=== PATIENT | male | born 1950 | race Caucasian/White ===

== ENCOUNTER 2024-02-01 05:03 | Inpatient (IN) | payer MEDICARE, BC, SELFPAY ==
[2024-01-24 08:58] LABS: Urine Albumin Negative (Neg - Trace); Urine Bilirubin Negative (Negative); Urine Character Clear (Clear); Urine Color Yellow; Urine Glucose Negative (Negative); Urine Ketone Negative (Negative); Urine Leukocyte Negative (Negative); Urine Nitrite Negative (Negative); Urine Occult Blood Negative (Negative); Urine Urobilinogen Negative (Neg - 1+)
[2024-01-24 09:03] LABS: % Basophils 0.8 % (0-2); % Eosinophils 2.3 % (0-6); % Immature Granulocytes 0.2 % (0-0.5); % Lymphocytes 13.2 % (20.5-51.1); % Monocytes 8.9 % (1.7-9.3); % Neutrophils 74.6 % (42.2-75.2); Absolute Basophils 0.1 10^3/uL (0-0.2); Absolute Eosinophils 0.1 10^3/uL (0-0.7); Absolute Lymphocytes 0.8 10^3/uL (1.2-3.4); Absolute Monocytes 0.6 10^3/uL (0.1-0.6); Absolute Neutrophils 4.6 10^3/uL (1.4-6.5); Hematocrit 44.1 % (39.0-52.0); Mean Corpuscular Hgb 30.4 pg (27.0-31.0); Mean Corpuscular Volume 89.3 fL (80.0-94.0); Mean Platelet Volume 9.9 fL (7.4-10.4); Nucleated Red Blood Cells % 0 % (-); Platelet Count 211 10^3/uL (130-400); Red Blood Cell Count 4.94 10^6/uL (4.70-6.10); White Blood Cell Count 6.2 10^3/uL (4.8-10.8)
[2024-01-24 09:27] LABS: Glycohemoglobin (HgbA1c) 5.8 % (4.0-5.6); INR 1.18; PT 14.9 Sec (11.4-14.6)
[2024-01-24 09:28] LABS: APTT 35.4 Sec (23.4-35.0)
[2024-01-24 09:36] LABS: ALT (SGPT) 32 U/L (0-50); AST (SGOT) 35 U/L (17-59); Albumin 3.7 g/dl (3.5-5.0); Alkaline Phosphatase 104 U/L (38-126); Blood Urea Nitrogen 21 mg/dl (9-20); Carbon Dioxide 30 mmol/L (22-30); Chloride 106 mmol/L (98-107); Direct Bilirubin 0.1 mg/dl (0.0-0.4); Glucose 107 mg/dl (70-99); Potassium 4.8 mmol/L (3.5-5.1); Sodium 138 mmol/L (135-145); Total Bilirubin 1.1 mg/dl (0.2-1.3); Total Protein 6.2 g/dl (6.3-8.2); eGFR > 60.00
[2024-01-24 11:03] VITALS: BMI 32.8
--- NOTE | 2024-01-24 14:29 | CM ---
spoke to pt in PAT's, we discussed pre-op CABG/AVR teaching including sternal and driving restrictions. he is prev ndep, lives with his in a 2 story home with 1 step to enter. he has a cane and a walker at home to use if needed. he has the
cardiac educ book, soap and instructions. he is agreeable to a f/u appt with the ct transitional care nurse after dc. plan is for CABG/AVR 01/31. cm to follow.
[2024-02-01] VITALS (12 sets, daily range): BP systolic 96–150; BP diastolic 58–77; BMI 31.9
[2024-02-01] MEDS: MAGNESIUM OXIDE 500 MG PO (06:11)
[2024-02-01] MEDS: BACTROBAN 2% OINTMENT 1 APPLIC NASAL ×2 (06:11→20:14)
--- NOTE | 2024-02-01 06:12 | W.CVOR.SURPR ---
[facility] Surgeon Immed Pre Op
-
I have examined this patient prior to performance of the scheduled procedure.
The patient's condition is unchanged from the time of the dictated/written History and
Physical and the patient is able to undergo the scheduled procedure.
AVR (biological) + CABG
Thoughtful discussion this morning, Mr. Brunson brought up mechanical valves. Ultimately, shared decision making was
to pursue a biological valve at his age.
--- NOTE | 2024-02-01 06:15 | PTCARENOTE ---
Patient arrived at room 2268 with security attendant without difficulty. Patient A+A+Ox3. No neurological deficits noted. Steady gait. No c/o pain or discomfort. Patient confirmed NPO after midnight. Patient confirmed 4% chlorhexidine shower
last night and this morning. Patient clipped and prepped per protocol. G wipes. Admission questions and medication reconciliation completed. Patient took his own Metoprolol (Toprol XL) 25 mg PO this morning at home, and Protonix 40 mg PO.
I.S. 2000 ml. Heart pillow explained - Repeat demonstration by patient. Dr. Tapia arrived and spoke with patient. call center associate to [facility].
[2024-02-01 07:44] LABS: ACT+ - POC 90 Seconds (82-134)
[2024-02-01 07:45] LABS: B.E. - POC -2.1 mmol/L; Glucose - POC 110 mg/dl (65-99); HCO3 - POC 22 mmol/L (21-29); Hematocrit - POC 37 % PCV (42-52); Hemodilution- POC Yes; Hemoglobin Calculated - POC 12.7; Ionized Calcium - POC 1.17 mmol/L (1.12-1.27); O2 Saturation %Calculated-POC 99.3 5 (92-96); PCO2 - POC 34 mmHg (35-45); PO2 - POC 142 mmHg (80-100); Potassium - POC 3.7 mmol/L (3.6-5.0); Sodium - POC 141 mmol/L (135-145); pH - POC 7.42 (7.35-7.45)
--- NOTE | 2024-02-01 07:53 | CM ---
Reviewed chart. Mr. Brunson is in the operating room today/ Prior to admission he resides with his spouse in a two story home with one step to enter. Prior to admission he was independent with ambulation and adls. He has a walker and single point
cane at home. He has a prescription plan and uses [facility]. Medical work-up in progress. The discharge plan is undetermined at this time.
[2024-02-01 07:57] LABS: Urine Albumin Negative (Neg - Trace); Urine Bilirubin Negative (Negative); Urine Character Clear (Clear); Urine Color Yellow; Urine Glucose Negative (Negative); Urine Ketone Negative (Negative); Urine Leukocyte Negative (Negative); Urine Nitrite Negative (Negative); Urine Occult Blood Negative (Negative); Urine Specific Gravity 1.015 (<1.030); Urine Urobilinogen Negative (Neg - 1+)
[2024-02-01 09:22] LABS: ACT+ - POC 787 Seconds (82-134)
[2024-02-01 09:40] LABS: B.E. - POC -0.3 mmol/L; Glucose - POC 160 mg/dl (65-99); HCO3 - POC 24 mmol/L (21-29); Hematocrit - POC 33 % PCV (42-52); Hemodilution- POC Yes; Hemoglobin Calculated - POC 11.4; Ionized Calcium - POC 1.06 mmol/L (1.12-1.27); O2 Saturation %Calculated-POC 99.8 5 (92-96); PCO2 - POC 39 mmHg (35-45); PO2 - POC 218 mmHg (80-100); Potassium - POC 5.1 mmol/L (3.6-5.0); Sodium - POC 138 mmol/L (135-145); pH - POC 7.41 (7.35-7.45)
[2024-02-01 09:47] LABS: ACT+ - POC 765 Seconds (82-134)
[2024-02-01 10:02] LABS: B.E. - POC -1.1 mmol/L; Glucose - POC 168 mg/dl (65-99); HCO3 - POC 23 mmol/L (21-29); Hematocrit - POC 34 % PCV (42-52); Hemodilution- POC Yes; Hemoglobin Calculated - POC 11.6; Ionized Calcium - POC 1.08 mmol/L (1.12-1.27); O2 Saturation %Calculated-POC 99.6 5 (92-96); PCO2 - POC 34 mmHg (35-45); PO2 - POC 179 mmHg (80-100); Potassium - POC 5.1 mmol/L (3.6-5.0); Sodium - POC 140 mmol/L (135-145); pH - POC 7.44 (7.35-7.45)
[2024-02-01 10:41] LABS: ACT+ - POC 656 Seconds (82-134)
[2024-02-01 10:42] LABS: B.E. - POC -1.7 mmol/L; Glucose - POC 153 mg/dl (65-99); HCO3 - POC 23 mmol/L (21-29); Hematocrit - POC 39 % PCV (42-52); Hemodilution- POC Yes; Hemoglobin Calculated - POC 13.4; Ionized Calcium - POC 1.17 mmol/L (1.12-1.27); PCO2 - POC 39 mmHg (35-45); PO2 - POC 385 mmHg (80-100); Potassium - POC 4.3 mmol/L (3.6-5.0); Sodium - POC 141 mmol/L (135-145); pH - POC 7.39 (7.35-7.45)
[2024-02-01 11:00] LABS: B.E. - POC -1.3 mmol/L; Glucose - POC 148 mg/dl (65-99); HCO3 - POC 23 mmol/L (21-29); Hematocrit - POC 40 % PCV (42-52); Hemodilution- POC Yes; Hemoglobin Calculated - POC 13.7; Ionized Calcium - POC 1.15 mmol/L (1.12-1.27); O2 Saturation %Calculated-POC 99.9 5 (92-96); PCO2 - POC 37 mmHg (35-45); PO2 - POC 348 mmHg (80-100); Potassium - POC 4.2 mmol/L (3.6-5.0); Sodium - POC 143 mmol/L (135-145)
[2024-02-01 11:02] LABS: ACT+ - POC 565 Seconds (82-134)
[2024-02-01 11:17] LABS: ACT+ - POC 493 Seconds (82-134)
[2024-02-01 11:28] LABS: B.E. - POC -2.5 mmol/L; Glucose - POC 130 mg/dl (65-99); HCO3 - POC 23 mmol/L (21-29); Hematocrit - POC 35 % PCV (42-52); Hemodilution- POC Yes; Hemoglobin Calculated - POC 12.1; Ionized Calcium - POC 1.31 mmol/L (1.12-1.27); PCO2 - POC 39 mmHg (35-45); PO2 - POC 378 mmHg (80-100); Potassium - POC 4.4 mmol/L (3.6-5.0); Sodium - POC 142 mmol/L (135-145); pH - POC 7.37 (7.35-7.45)
[2024-02-01 11:54] LABS: ACT+ - POC 109 Seconds (82-134)
[2024-02-01 11:56] LABS: B.E. - POC -4.4 mmol/L; Glucose - POC 125 mg/dl (65-99); HCO3 - POC 21 mmol/L (21-29); Hematocrit - POC 33 % PCV (42-52); Hemodilution- POC Yes; Hemoglobin Calculated - POC 11.2; Ionized Calcium - POC 1.36 mmol/L (1.12-1.27); O2 Saturation %Calculated-POC 97.9 5 (92-96); PCO2 - POC 37 mmHg (35-45); PO2 - POC 106 mmHg (80-100); Potassium - POC 3.9 mmol/L (3.6-5.0); Sodium - POC 143 mmol/L (135-145); pH - POC 7.36 (7.35-7.45)
[2024-02-01 11:57] LABS: ACT+ - POC > 1003 Seconds (82-134)
[2024-02-01 12:53] LABS: Glucose - Point of Care 153 mg/dl (70-99)
[2024-02-01] MEDS: ALBUMIN 5% 250 IV ×3 (12:55→16:11)
[2024-02-01 12:57] LABS: B.E. -3.2 mmol/L; HCO3 22.7 mmol/L (21-28); Hematocrit 36.2 % (39.0-52.0); Hemoglobin 12.5 g/dL (13.0-18.0); Ionized Calcium 1.25 mMOL/L (1.15-1.33); O2 Saturation % 99.3 % (94-98); PCO2 43 mmHg (35-48); PO2 220 mmHg (83-108); Platelet Count 159 10^3/uL (130-400); Potassium 4.2 mMOL/L (3.5-5.1); Sodium 137 mMOL/L (136-145); pH 7.33 (7.35-7.45)
--- NOTE | 2024-02-01 13:00 | W.PN.CT.SURG ---
CT Surgery Operative Note
-
CARDIAC SURGERY OPERATIVE REPORT
Preoperative Diagnosis: Aortic valve stenosis as well as severe aortic valve insufficiency with multivessel coronary artery disease involving the proximal LAD
Postoperative Diagnosis: Same
Procedure(s) Performed:
1. Standard sternotomy with aortic and right atrial cannulation
2. Coronary artery bypass grafting x 2 (In situ MCLEAN to LAD, Ao to RSVG to RPDA)
3. Surgical aortic valve replacement [25 mm bioprosthetic valve]
4. Placement of temporary atrial and ventricular pacing wires
5. Second cross-clamp with small aortotomy to remove debris/calcium attached to the none right coronary commissure just above the bioprosthetic valve against the aortic wall
6. Trans-esophageal echocardiography
Date of Surgery: 02/01/2024
Comorbidities:
1. Severe aortic valve insufficiency
2. Multivessel coronary artery disease
3. Hypertension
4. Lipidemia
5. Mild mitral and tricuspid valve regurgitation
6. Multiple orthopedic issues and surgeries
Attending Surgeon: Jerrod Tapia MD, MS
Assistants: Alfredo Cedillo PA-C (present and necessary to tv production assistant, endoscopic vein harvest, retraction, suction, exposure, suture management, and wound closure under my direction)
Anesthesiology: Mick Gong MD and Rolando Fortune CRNA
Scrub and Circulating RNs: Radha Figueroa RN, Aditi Portillo RN
Television Tube Inspector: Anna Rainey CCP
Anesthesia: GETA
EBL: per perfusion records
Products: None
CPB Time: 128 minutes total
Aortic Cross Clamp Time: 93 minutes total
Indication(s) for Procedures: This is a 73-year-old male with a history of moderate aortic valve stenosis and severe aortic valve insufficiency. He was developing exertional chest tightness and discomfort though consistent with angina. He
underwent left heart catheter demonstrated multivessel coronary artery disease involving the proximal LAD as well as the proximal RPDA. Due to his symptoms and severe aortic valve insufficiency, he met class I indication for intervention.
Aortic Valve Description: Moderately calcified, prolapse of the noncoronary cusps with heavy calcium running down the noncoronary cusp into the aorta mitral curtain. The left and right coronary ostia were in the [place] positions. The right
coronary ostium was heavily calcified with a large shelf of calcium overlying the ostium.
Conduit(s) Quality:
MCLEAN -skeletonized/excellent flow
RSVG -uniform in size/excellent flow with test dose of antegrade into the RPDA graft
Target(s) Quality:
RCA/PDA -approximately 50 to 60 cc a minute of flow with test dose of antegrade
LAD -excellent visual flow in the LAD territory with pinking up of the myocardium
Findings: LVEF on intraoperative ADALGISA was 60% and 60% post procedure. There were no new regional wall motion abnormalities. The aortic valve was resected after performing the CABG procedure. There is heavy dense calcification that extended from
the noncoronary cusp down the aorta mitral curtain which was debrided carefully to prevent perforation into the left atrium. There was also scattered islands of calcium along the sinuses and at the sinutubular junction. The prostatic aortic valve
was secured to place with a total of 17 nonpledgeted 2 Ethibond sutures secured with core knots. There was no prosthetic PVL or AI. Mean gradient across the prosthesis was 8 mmHg. The MCLEAN was harvested in a skeletonized fashion. Following bypass
grafting, test dose cardioplegia was given down each distal and confirmed patency and hemostasis. Each distal was probed both proximally and distally to confirm disease and patency, respectively. There were no new regional wall motion
abnormalities. On transesophageal echocardiogram post cardiopulmonary bypass, there was a small piece of debris overlying the right none, sure on the aortic side that was fairly mobile. Given the appearance and risk of stroke, I elected to recross
clamp and rearrest the heart in order to debride that area further to prevent embolization and mischaracterization as endocarditis. Following this, there is no residual debris or mobile tissue on follow-up transesophageal echocardiogram. Did not
require any blood products. His cardiac function appeared to be normal after the second clamp run. His cardiac index was 2 and above without significant inotropic support.
Specimen(s): Aortic valve leaflets.
Prosthesis: 25mm Medtronic Avalus Bioprosthetic Valve, serial number: [id number].
Description of Procedure: The patient was taken to the operating room. Their identity and procedure to be performed were verified and they were positioned supine on the operating table. Induction via general anesthesia with endotracheal intubation
was performed and central venous access and arterial monitoring were inserted. A preoperative transesophageal echocardiogram was performed. The patient was then prepped and draped from chin to feet in a sterile fashion. A preoperative time-out was
performed with all members of the team present. A midline chest incision was performed along with median sternotomy. Simultaneous endoscopic access of the right lower extremity for saphenous vein harvest was obtained along with administration of an
initial 5,000 units of IV heparin. A RulTract sternal retractor was positioned to exposure the left internal mammary bed. The mammary was harvested in a skeletonized fashion and found to have good flow. A medium size clip was applied to the distal
end of the mammary after dividing it. It was wrapped in a papaverine soaked RayTec and replaced back into the left hemithorax. The RulTract was exchanged for a median sternal retractor. The innominate vein was isolated. Full heparinization was
given. I created a pericardial well. The aortic cannulation site was chosen where it was soft, pliable, and free of calcium. Cannulation was performed with an arterial cannula in the ascending aorta and a triple-stage venous cannula through the
right atrial appendage. The arterial cannula line had an appropriate bounce and correlating pressures with test dosing. next a retrograde coronary sinus catheter was placed under manual and echocardiographic guidance. The ACT was confirmed to be
over 400 and retrograde autologous priming was performed before commencing cardiopulmonary bypass. The pulmonary artery was away from the aorta to facilitate a clamp site. Left ventricular vent was placed at the right superior pulmonary
vein. The aortic cross-clamp was placed after decreasing the flow on the bypass and mean arterial pressure. A total of 1.2L initial dose of antegrade/retrograde Del-Nido cardioplegia solution was given and planned for re-dosing every 75 minutes as
necessary. There was rapid electro-mechanical arrest of the heart at 600 cc of cardioplegia. The aorta was opened at this point with good visualization of retrograde cardioplegia emanating from the left main. Cold slush was placed into a sponge and
topically on the RV while we systemically cooled to 34 degrees centigrade.
I positioned the heart to expose the distal right coronary at the posterior descending artery. A kotzebue blade was used to expose the coronary and perform the arteriotomy. Coronary Eagle scissors were used to enlarge the incision. The saphenous vein
was trimmed and beveled to an appropriate size. The distal anastomosis was performed using 7-0 prolene in an end-to-side fashion. Antegrade cardioplegia was administered into the graft. Appropriate hemostasis and flow were confirmed. The graft was
measured for length to the aorta and cut. A suitable target on the mid left anterior descending was identified. We dissected and prepared the distal target in a similar fashion. We retrieved the MCLEAN from the chest and created a pericardial opening
while being cognizant of the phrenic nerve to facilitate the course of the mammary. The distal end of the mammary was prepped and beveled to size. We verified orientation and length of the JEREMIAH and found brisk flow. An end-to-side anastomosis was
created with a 7-0 prolene. We temporarily released the bulldog clamp on the mammary to inspect flow. Perfusion to the LAD territory was visualized and hemostasis was confirmed. The bull clamp was replaced on the mammary.
Carbon dioxide was used to flood the field. I turned my attention to the aortic valve. The location of both left and right coronary vessels were visualized in the root. The aortic valve was inspected and found to be heavily calcified with prolapse
of the noncoronary cusp as well as extensive calcium extending down to the aorta mitral curtain. The leaflets were excised and sent for pathological assessment. The aorta mitral curtain was debrided. The annulus was debrided of any calcium. The
root and left ventricular outflow tract were thoroughly irrigated to remove any debris. A total of 17, nonpledgeted 2-0 ethibond annular sutures were placed [id number] circumferentially. These were brought through the sewing cuff of the
prosthetic valve which was then parachuted into place. The left and right coronary ostia were visualized and were unobstructed by the valve. A Cor-Knot device was used to secure the annular sutures. The valve was inspected and was well seated. I
did have to debride some calcium off of the ostium of the right coronary artery. The aortotomy was approximated with 4-0 prolene in two layers. The heart was filled to make final assessment of graft length and orientation. I created 1 aortotomy
using a #11 blade then a 4.0mm aortic punch above the aortic suture line. The proximal anastomoses were created in an end-to-side fashion using 6-0 prolene. At the same time, we started to re-warm to 36.5 degrees centigrade. The bulldog clamp was
removed from the mammary and temproary bipolar ventricular pacing wires were placed on the base of the right ventricle with additional atrial pacing wires at the SVC/right atrial junction. The patient was placed in a Trendelenburg position and flows
on bypass were lowered. The aortic cross clamp was removed and flows were slowly brought back up. The aortotomy appeared hemostatic. A 30-gauge needle was used to de-air the vein grafts. All bypass grafts were inspected and were free from kinking or
twisting. The distal and proximal anastomoses appeared hemostatic. De-airing maneuvers were performed. Transesophageal echocardiography revealed no paravalvular leak and appropriate prosthetic function. The venous cannula had removed at this point.
However, there was some mobile debris overlying the valve at the right none commissure on the aortic side. Protamine was stopped, heparin was reinstituted. The venous cannula was reinserted to the same right atriotomy. An additional root vent
was placed in the ascending aorta. At this point I elected to recross clamp the heart and to redosed with a low-dose of cardioplegia and clamped the mammary. A small aortotomy was created that was approximately 2 to 3 cm in length above the
coronary anastomosis and aortic suture line. The valve was then inspected and a small amount of debris was found at the specified location just above the valve against the aortic wall. This was mainly taken off with a DeBakey forcep. The small
aortotomy was then closed in 2 layers using 4-0 Prolene and reinforced with pledgets. The head was then lowered once more the root vent was turned on. De-airing maneuvers were performed. And flows in the pump were lowered to remove the
cross-clamp once again. Flows were then brought back up. Transesophageal echocardiographic evaluation revealed that that area with the debris is no longer present. The patient did require cardioversion x 2 for fibrillation which was successful
after emptying the left ventricle. Once de-airing was satisfactory, the left ventricular and root vents were removed. After verifying acceptable parameters, we initiated weaning from cardiopulmonary bypass. Once we were off cardiopulmonary bypass,
the venous cannulas was clamped and removed. A test dose of protamine was administered and the patient was monitored for any adverse reaction before resuming protamine. Once half of the protamine dose was delivered, pump suckers were turned off and
the systolic blood pressure was lowered for aortic decannulation. The aortic cannula was removed and pursestrings were tied down. All cannulation sites were oversewn with a 4-0 prolene. The aortic line, proximal, and distal coronary anastomoses were
hemostatic. The mammary bed was inspected and hemostasis was confirmed. Once the mediastinum was hemostatic, a 19Fr Prudencio drain was placed in the left/right pleural cavity and two 24Fr Prudencio drains were placed within the pericardium. The sternum was
approximated with 4 #7 single and 3 #8 double stainless steel wires. Fascia was approximated with #1 vicryl suture. The subcutaneous, dermis and epidermis were closed in layers in a running fashion. The skin wound was cleansed and dressed.
All instrument, sponge, and needle counts were confirmed to be correct x 2 at the end of the operation. The patient was transferred to the cardiac intensive care unit in critical but stable condition.
I, Dr. Jerrod Tapia, was present, scrubbed for, and performed all critical elements of this procedure.
Jerrod Tapia MD, MS
Cardiothoracic Surgeon
[facility]
This operative dictation was created using the Nixon dictation system. Please excuse any grammatical, typographical, or 'sound alike' errors
--- NOTE | 2024-02-01 13:05 | PTCARENOTE ---
pt received from [facility], sedated on Precedex gtt, RASS -5. core temp 98.0F. SR on the monitor, HR 70s. A&V wires, AAI 50/8. SBP labile, Levophed gtt running as ordered. Albumin given x1. PAP 20s-30s/10s, CVP ~5, CI >2. Dobutamine gtt @3mcg/kg/min.
palpable pulses, no edema. pt mechanically ventilated, ETT #8.0, 23cm@lip. SIMV 12, TV 550, PEEP 10, PS 8, FIO2 100%. POX 99%. lungs clear anteriorly. CT x4, no air leak or crepitus noted, BOX SPRING FRAME BUILDER and Dr. Tapia aware of CT output. pt abdomen s/n,
hypoactive BS. [place] in place, clear yellow urine. sternal incision DISTANCE EDUCATION DIRECTOR, approximated, surgical adhesive present. chest tube site c/d/i. RLE JANNET bandage in place. RIJ cordis/swan maintained. L radial [place] flushed, zeroed, and calibrated. PIV.
insulin gtt running per protocol. lab work drawn, EKG performed, CXR completed. see worklist for VS, I&O, and assessment.
[2024-02-01 13:08] LABS: INR 1.53; PT 18.2 Sec (11.4-14.6)
[2024-02-01 13:09] LABS: APTT 35.8 Sec (23.4-35.0)
[2024-02-01] MEDS: DILAUDID 0.5 MG IV ×3 (13:09→20:51)
[2024-02-01] MEDS: NSS 500 IV (13:10)
[2024-02-01] MEDS: NEURONTIN PO ×2 (13:10→15:30)
[2024-02-01] MEDS: TYLENOL PO (13:11)
[2024-02-01] MEDS: ANCEF 10 IV ×2 (13:11)
[2024-02-01] MEDS: NOVOLOG FLEXPEN SC ×2 (13:11→15:30)
--- NOTE | 2024-02-01 13:12 | CON.INTV ---
Consultation
Consultation Request
Date/Time Consultation Requested: 02/01/2024-1 PM
Date/Time Consultation Performed: 02/01/2024-1:15 PM
Requesting Provider: Cardiothoracic surgery
Performing Provider: Dr. Pemberton
Reason for Consultation: postoperative ventilator/critical care management
Medical History
-
Chief Complaint: Aortic stenosis and CAD
History of Present Illness:
73-year-old male with a history of hypertension, hyperlipidemia and aortic valve insufficiency underwent CABG/AVR and job recruiter consulted for postoperative ventilator/critical care management 02/01/2024. The patient is sedated on a ventilator and
review of systems was unobtainable. Operative records were reviewed and pulmonary artery catheter parameters were reviewed as well as ventilator settings.
Past Medical History
Past Medical History: None (Hypertension. Hyperlipidemia. Torn rotator cuff. Hip surgery 2007, 2016. Knee surgeries 2000, 2003. Bowel surgery colostomy 1994, reversed 1995. Back surgery.)
Social History
Tobacco: Non-smoker
Alcohol: Occasional
Drug: None
Living: With Family
Occupational Exposures: No known asbestos exposure
Environmental Exposures: No known tuberculosis exposure
Family History
Family History: Other (Mother- complications of HIV/AIDS. Brother-brain cancer.)
Allergies / Home Medications
Allergies
Allergy/AdvReac Type Severity Reaction Status Date / Time
No Known Allergies Allergy Verified 01/21/24 09:21
Home Medications
Medication Instructions Recorded Confirmed Last Taken Type
benazepril 20 mg tablet 20 mg PO HS 10/28/23 02/01/24 01/29/24 20:00 History
20 mg
clopidogrel 75 mg tablet 75 mg PO DAILY #90 tabs 10/28/23 02/01/24 01/27/24 08:00 Rx
75 mg
coenzyme Q10 100 mg capsule 300 mg PO DAILY 10/28/23 02/01/24 01/25/24 08:00 History
(CoQ-10) 300 mg
dorzolamide 22.3 mg-timolol 6.8 1 drp ophthalmic (eye) BID 10/28/23 02/01/24 01/31/24 17:00 History
mg/mL eye drops one gtt each
eye
metoprolol succinate 25 mg 25 mg PO BID #60 tabs 10/28/23 02/01/24 02/01/24 04:00 Rx
tablet,extended release 24 hr 25 mg
multivitamin 1 tab PO DAILY 10/28/23 02/01/24 01/25/24 08:00 History
1 tab
pantoprazole 40 mg tablet,delayed 40 mg PO DAILY #90 tabs 10/28/23 02/01/24 02/01/24 04:00 Rx
release 40 mg
rosuvastatin 20 mg tablet (Crestor) 20 mg PO QPM #90 tabs 10/28/23 02/01/24 01/29/24 20:00 Rx
20 mg
tamsulosin 0.4 mg capsule 0.4 mg PO HS 10/28/23 02/01/24 01/31/24 20:00 History
0.4 mg
testosterone 1 % (50 mg/5 gram) 1 packet transdermal DAILY 10/28/23 02/01/24 01/31/24 08:00 History
transdermal gel packet 1 gel packet
tramadol 300 mg tablet,extended 300 mg PO DAILY 10/28/23 02/01/24 01/31/24 08:00 History
release 24 hr 300 mg
aspirin 81 mg capsule 81 mg PO DAILY 01/21/24 02/01/24 02/01/24 04:00 History
81 mg
Review of Systems
-
Unable to Obtain full review of systems at this time due to: Patient Intubation
Vitals / Labs / Diagnostic Testing
Vital Signs
Temp Pulse Resp BP Pulse Ox
98 F 66 12 148/58 99
02/01/24 12:55 02/01/24 05:36 02/01/24 12:55 02/01/24 05:37 03/19/24 12:55
Laboratory Results
02/01/24
12:45
pH 7.33 L
pCO2 43
pO2 220 H
HCO3 22.7
O2 Delivery Level Not Reportable
Diagnostic Testing:
Physical Exam
-
Exam:
Well-nourished and well-developed in no apparent distress
HEENT-atraumatic, normocephalic, oral tracheal intubation
Heart-regular rate and rhythm-no murmurs, rubs or gallops
Chest-clear to auscultation, no wheezes, crackles, median sternotomy bandage is not removed
Abdomen soft nondistended
Extremities-no cyanosis, clubbing, edema and good peripheral pulses
Integument-intact, no rashes, lesions or ecchymosis
Neurologically not alert, not oriented, not moving any of his extremities sedated on a ventilator
Assessment
-
73-year-old male with a history of hypertension, hyperlipidemia and aortic valve insufficiency underwent CABG/AVR and job recruiter consulted for postoperative ventilator/critical care management 02/01/2024.
Assessment
CAD and aortic insufficiency
Status post CABG and AVR-Dr. Tapia-02/01/2024
Mild anemia-hemoglobin 12.5
Mild hyperglycemia-blood sugar 107, A1c 5.8
Conditions present prior to admission:
Hypertension.
Hyperlipidemia.
Obesity-BMI 32
Torn rotator cuff. Hip surgery 2007, 2017. Knee surgeries 2000, 2003. Bowel surgery colostomy 1994, reversed 1995. Back surgery.
Plan
Ventilator settings reviewed
FiO2 will be weaned
Minute ventilation will be adjusted
Arterial blood gases will be monitored
Spontaneous breathing trial will be attempted with hopeful extubation after anesthesia/sedation wear off
Pulmonary artery catheter parameters will be followed
Pressors/antihypertensive/inotropes/diuretics will be provided as needed
Monitor chest tube output
Monitor hemoglobin
Monitor platelet count and coags
Transfuse blood product if needed
CT surgery following chest tubes
Monitor blood sugar
Insulin drip per protocol
Aspiration precautions
VAP prevention protocol
DVT prophylaxis
Early nutrition
Early mobilization
Critical care statement: A total of 50 minutes of critical care time was provided for this patient today. This includes management of ventilator, spontaneous breathing trial, arterial blood gases, pressors, of unstable vital signs, evaluation of the
patient at bedside, reviewing the patient's pertinent medical records including radiographs, microbiology, laboratory evaluations, and discussion with primary team and critical care nursing.
Diagnostic data:
Chest x-ray 02/01/2024-pending
CT chest coronary angiogram 10/19/2023-multivessel calcified plaque including moderate diffuse calcified plaque left main, calcium score 1897 consistent with significant plaque burden
Echocardiogram 10/29/2023-EF 60%, mild mitral regurgitation, moderate aortic stenosis
Cardiac catheterization 10/28/2023-no significant left main stenosis, moderate calcified plaque mid LAD
Data Reviewed
-
EKG: Report reviewed by me
Radiology: Image personally visualized and interpreted and Report reviewed by me
CT Scan: Report reviewed by me
Medical Tests (Nuc Med, Echo etc): Report reviewed by me
Labs: Labs reviewed by me
Old Records: Reviewed
Critical Care Time (in minutes): 50
--- NOTE | 2024-02-01 13:13 | W.PN.CARDCBS ---
Addendum entered and electronically signed by Sarah Camarillo MD 02/01/24 15:57:
I saw and examined the patient.
The Barrel Charrer Helper's note was reviewed and I agree with the note.
Comment: Patient is still intubated however awake and appears comfortable.
He is postop day 0 status post two-vessel CABG with in situ MCLEAN to LAD and saphenous vein graft to RPDA. He is currently on 6 of Levophed and 3 of dobutamine with most recent cardiac index of 2.4 making good urine.
Recommendations:
1. Wean ventilator as tolerated.
2. Wean pressors and inotropes as tolerated.
3. Close monitoring of blood counts and renal function with repletion of electrolytes as needed.
4. Pain control per primary team.
5. Continue supportive postoperative care.
Sarah Camarillo MD, [facility], [facility]
Original Note:
Today's Communication / Plan
-
Wean off pressors
Wean sedation with plan of extubation this afternoon/evening
Monitor trend lytes and Hgb
Impression / Plan
-
PCP: Dr. Cristofer Quintero
Community Relations Coordinator: Dr. Merced Melo
Impression:
Multivessel CAD
s/p CABG x 2 (In situ MCLEAN to LAD, Ao to RSVG to RPDA) 02/01/2024
Severe Aortic regurgitation with mild to moderate aortic stenosis
s/p SAVR [25 mm bioprosthetic valve] 02/01/2024
Hypertension
Hyperlipidemia
Mitral regurgitation
Hip surgeries
Knee surgeries
Bowel obstruction with colostomy bag, reversed
Back surgery
Cardiac cath 10/28/2023: LM: Cloacal with near separate origins of the LAD and circumflex: LAD:moderately calcified proximal and mid LAD with at least 60% stenosis of the mid lesion just before the origin of the first diagonal branch. LCX:LI,
noncritical CAD. RCA: proximal 30% stenosis and 60% mid RCA stenosis as well as 40% stenosis near the origin of the second right marginal branch. Both the posterolateral branch and the PDA have disease at their origin. iFR assessment of the LAD
lesion was positive although the RCA measurement was above ischemic threshold measuring [id number].
Echocardiogram 10/29/2023: EF 60%, mild LVH, mildly dilated LA, mild MR/TR, mild to moderate aortic stenosis with peak/mean gradient 42/21 mmHg, ENOC 2.1 cm�, moderate to severe AI
Plan:
-MVCAD with moderate to severe AI and moderate . S/p CABG x 2 (In situ MCLEAN to LAD, Ao to RSVG to RPDA) and s/p SAVR [25 mm bioprosthetic valve] 02/01/2024
-patient seen immediately post op. Remains intubated and sedated. Plan to wean sedation extubate this afternoon/evening
-Hemodynamically stable but requiring Levophed mcg/min and dobutamine 3 mcg/kg/min. Wean as tolerated
-Post op ECG sinus rhythm with icrbbb and non-specific ST abnormality; continue to monitor on tele
-Post OP CXR with very small left pleural effusion
-Monitor and trend post-op Hgb 12.5
HPI:
This is a 72-year-old gentleman with a past medical history notable for moderate aortic insufficiency, mild aortic stenosis, hypertension, and hyperlipidemia.� He was evaluated by Dr. Jimenez earlier in the year and reported some exertional chest
tightness in September 2022 when he was out walking his dog in cold weather months.� The symptoms would occur with exertion and would resolve within 1 minute of rest.� As far as he can recall he has had no recurrence in his symptoms since September
2021.� He remains reasonably active and continues to walk his dog but is not sure that he experienced similar symptoms since then.� A [employer] Myoview study was notable for a small area of mildly decreased uptake at the apex that was largely fixed
consistent with infarction with residual ischemia versus soft tissue attenuation.� His LVEF was estimated at 58%.� He was seen back in our office and reportedly experienced some degree of recurring anginal symptoms for which a CT coronary
angiography was performed.� The coronary calcium score was 1897.� The left main was noted to have moderate calcific diffuse plaque, the LAD had severe proximal calcified plaque and diffuse moderate to severe mid calcified plaque.� The circumflex had
severe proximal calcific plaque in the right coronary artery had moderate to severe proximal calcific plaque.� Dr. Melo discussed the findings and recommended proceeding with coronary angiography.� The patient continued to deny any symptoms
which was confirmed post procedure by his spouse.� Both the patient and his state that he has a tendency to 'downplay any symptoms.' He had chest pain 12/28/2023 while walking his dog in [place] and was evaluated in the emergency
department. Given progression of symptoms patient met with CT surgery and was agreeable to proceed with CABG and AVR.
Progress Note - Community Relations Coordinator
Subjective
Date of Service: February 01, 2024
Patient seen and examined. Seen immediately post op and remains intubated and sedated.
Objective
Labs:
Labs
Hgb 12.5 g/dL (13.0-18.0) L 02/01/24 12:45
Hct 36.2 % (39.0-52.0) L 02/01/24 12:45
Plt Count 159 10^3/uL (130-400) 02/01/24 12:45
PT 14.9 Sec (11.4-14.6) H 01/24/24 08:30
INR 1.18 01/24/24 08:30
APTT 35.4 Sec (23.4-35.0) H 01/24/24 08:30
Sodium 138 mmol/L (135-145) 01/24/24 08:30
Potassium 4.8 mmol/L (3.5-5.1) 01/24/24 08:30
BUN 21 mg/dl (9-20) H 01/24/24 08:30
Creatinine 0.9 mg/dL (0.7-1.3) 01/24/24 08:30
Glucose 107 mg/dl (70-99) H 01/24/24 08:30
Vital Signs and I&O:
Vital Signs
Temp Pulse Resp BP Pulse Ox
98 F 66 12 148/58 99
02/01/24 12:55 02/01/24 05:36 02/01/24 12:55 02/01/24 05:37 02/01/24 12:55
Vital Signs
Temp Pulse Resp BP Pulse Ox
98 F 66 12 148/58 99
02/01/24 12:55 02/01/24 05:36 02/01/24 12:55 02/01/24 05:37 02/01/24 12:55
Intake & Output
01/30/24 01/31/24 02/01/24 02/02/24
06:59 06:59 06:59 06:59
Intake Total 84.1 / 84.1
Output Total 115 / 115
Balance -30.9 / -30.9
Physical Exam
Physical Exam
GEN: Intubated and sedated
HEENT: supple, anicteric, mmm
LUNGS: Mildly decreased at left base CTA, no wheezes/rales
CV: Reg, S1/S2, 1/6 syst murmur, no rub or gallops
Chest: Sternotomy incision well-approximated
ABD: soft, BS+, NT/ND
EXT: No edema,clubbing or cyanosis
NEURO: Intubated, sedated but responds to pain opens eyes
SKIN: No rash, warm, dry, pink
[2024-02-01] MEDS: DDAVP 57.5 MCG IV (13:29)
[2024-02-01 13:34] LABS: Blood Urea Nitrogen 21 mg/dl (9-20); Estimated Creatinine Clearance 89 ml/min; Glucose 153 mg/dl (70-99); Magnesium 2.9 mg/dl (1.6-2.3)
--- NOTE | 2024-02-01 13:54 | W.PN.UPDATE ---
Update Note
Progress Note Update
73 year old male electively admitted 01/31 for AVR/CABG due to mixed AI/ and 2 vessel CAD
IV fluids: 1300
U.O.:� 400
UF:� N/A
Blood:� N/A
Wires:� 2 atrial/bipolar V wire
Inotropes:� Dobutamine @ 3
Pressors:� Levophed @ 6
Sedatives:� Precedex @ 0.6
�
NEURO: sedated on Precedex, pupils +2mm B/L
RESP: #8OT @22cm> 550/100%//10. Lungs clear B/L. 2 mediastinal (50cc on arrival) and R/L pleural (5cc on arrival) chest tubes to -20cm suction. Sanguineous drainage
CV: RRR +S1, S2, no S3, no�rub, no murmur. Dermabond to median sternotomy. RIJ w/Bradford locked @ 45cm. PA 29/9; CVP 3; C.O 4.3/CI 2.1
ABD: round, soft, no BS
EXT: no edema, +2/4 DP pulses B/L, no femoral bruit, RLE JANNET wrap intact; left radial A-line intact
: Clinton with clear yellow urine
�
A/P: POD #0 s/p AVR #25mm MDT Avalus, CABG x 2 MCLEAN-LAD; SVG-RPDA, removal of debris/calcium attached to the non right coronary commissure
ADALGISA: EF�nl
- wean and extubate
- will need instruction regarding antibiotic prophylaxis for dental and invasive procedures
# CAD
- ASA in 6 hours if no bleeding
- ASA/Plavix, statin (Crestor) start 02/01
- hold Beta-shari while on Dobutamine
# Acute surgical blood loss anemia
- DDAVP for increased CT drainage
- PEEP to 10
- trend CBC/CT output
�
# BPH
- resume Flomax when of pressors and BP tolerates
# DJD with hx multiple hip, knee, back surgeries
- on daily home Tramadol 300mg
# Hx colostomy reversal 1995
- slow reintroduction to solids
�
[2024-02-01 14:00] LABS: Glucose - Point of Care 144 mg/dl (70-99)
--- NOTE | 2024-02-01 14:00 | PTCARENOTE ---
Dilaudid 0.5mg IVP given as ordered for CPOT 7. DDAVP given as ordered. pt able to nod head appropriately, NORRIS, follows commands. drowsy.
[2024-02-01] MEDS: OFIRMEV 100 IV (14:27)
[2024-02-01 14:58] LABS: Glucose - Point of Care 177 mg/dl (70-99)
[2024-02-01] MEDS: PACERONE PO (15:30)
[2024-02-01 15:36] LABS: B.E. -0.2 mmol/L; HCO3 24.8 mmol/L (21-28); Ionized Calcium 1.23 mMOL/L (1.15-1.33); O2 Saturation % 98.8 % (94-98); PCO2 41 mmHg (35-48); PO2 131 mmHg (83-108); Potassium 4.7 mMOL/L (3.5-5.1); pH 7.39 (7.35-7.45)
[2024-02-01 15:59] LABS: Glucose - Point of Care 153 mg/dl (70-99)
[2024-02-01 16:15] LABS: Hematocrit 32.9 % (39.0-52.0); Hemoglobin 11.5 g/dL (13.0-18.0); Platelet Count 165 10^3/uL (130-400)
--- NOTE | 2024-02-01 16:25 | PTCARENOTE ---
vent settings adjusted per RESIDENT BUYER, SIMV 12, TV 550, PEEP 5, PS 5, FIO2 40%. pt awakens to voice, drowsy. pt washed w/ CHG wipes, face washed. oral hygiene performed. sequentials in place. H&H sent. Albumin 250ml given.
[2024-02-01 17:01] LABS: Glucose - Point of Care 144 mg/dl (70-99)
[2024-02-01 17:14] LABS: B.E. 0.2 mmol/L; HCO3 24.6 mmol/L (21-28); O2 Saturation % 98.8 % (94-98); PCO2 38 mmHg (35-48); PO2 135 mmHg (83-108); pH 7.42 (7.35-7.45)
[2024-02-01] MEDS: ANCEF 5 IV (17:29)
[2024-02-01] MEDS: LOW STRENGTH ASPIRIN 81 MG PO (17:30)
[2024-02-01] MEDS: ZOFRAN 4 MG IV (17:30)
--- NOTE | 2024-02-01 17:37 | PTCARENOTE ---
pt placed on CPAP trial @1637, tolerated well. ABG drawn, [employer] aware of results. pt extubated @1725 to 6LNC, POX 97%. oriented x4, IS 1000ml. pt c/o 8/10 sternal incision pain, received PRN Dilaudid 0.5mg IVP.
[2024-02-01 19:00] LABS: Glucose - Point of Care 129 mg/dl (70-99)
--- NOTE | 2024-02-01 19:00 | PTCARENOTE ---
report received from previous RN, walking rounds done. pt in bed, drowsy but oriented x4. pt denies any pain at this time. VSS. NSR on monitor, HR 80's. epicardial wires intact, set to back up AAI. left radial art line intact. RIJ cordis + swan
intact w KVOs infusing. SBP 100's. PAPs ~20's/10's. CVP ~10. Dobut gtt infusing @ 2mcg. last CI 2.75. B/L radial and DP pulses palpable. heart tones clear. B/L breath sounds present. POX 96% on 4LNC. IS encouraged. CT x4 intact to -20cm wall
suction, drainage WNL, no air leak present. saunders catheter intact, draining clear yellow urine. UO adequate. hypoactive BS preset. pt denies any nausea. Insulin gtt infusing per glycemic protocol. all surgical sites stable. see worklist for full
assessment, VS, and interventions. pt sleeping between care.
[2024-02-01] MEDS: SENOKOT-S 1 TABLET PO (20:14)
[2024-02-01 20:57] LABS: Glucose - Point of Care 133 mg/dl (70-99)
[2024-02-01] MEDS: NEURONTIN 100 MG PO (21:00)
[2024-02-01] MEDS: PACERONE 200 MG PO (21:00)
[2024-02-01] MEDS: TYLENOL 1000 MG PO (21:00)
[2024-02-01 22:18] LABS: Glucose - Point of Care 120 mg/dl (70-99)
--- NOTE | 2024-02-01 23:00 | PTCARENOTE ---
no changes in assessment, pt VSS. NSR. 4LNC. CT output and UO WNL. Dobut gtt remains @ 2mcg. last CI 3.53. Insulin gtt maintained per protocol. all surgical sites stable. pt sleeping between care.
[2024-02-01 23:11] LABS: Glucose - Point of Care 115 mg/dl (70-99)
[2024-02-02] VITALS (23 sets, daily range): BP systolic 90–137; BP diastolic 63–90; PULSE 82; O2SAT 96–98; BMI 32.1
[2024-02-02 00:01] LABS: Glucose - Point of Care 114 mg/dl (70-99)
[2024-02-02] MEDS: ROXICODONE 5 MG PO ×2 (00:08→06:06)
[2024-02-02] MEDS: FLOMAX 0.400000000000000022 MG PO ×2 (00:09→22:03)
[2024-02-02] MEDS: DILAUDID 0.5 MG IV ×4 (00:09→10:07)
[2024-02-02 01:13] LABS: Glucose - Point of Care 113 mg/dl (70-99)
[2024-02-02] MEDS: ANCEF 5 IV ×2 (02:06→10:07)
--- NOTE | 2024-02-02 03:00 | PTCARENOTE ---
no changes in assessment, pt VSS. SR w PACs. 4LNC. CT output and UO WNL. Dobut gtt infusing @ 1mcg. Insulin gtt maintained. all surgical sites stable. AM labs drawn and sent. EKG done. pt resting between care.
[2024-02-02 03:11] LABS: Glucose - Point of Care 110 mg/dl (70-99)
[2024-02-02] MEDS: FLEXERIL 5 MG PO (03:30)
[2024-02-02 03:35] LABS: Hematocrit 29.9 % (39.0-52.0); Hemoglobin 10.4 g/dL (13.0-18.0); Mean Corp Hgb Conc. 34.8 g/dL (33.0-37.0); Mean Corpuscular Hgb 30.4 pg (27.0-31.0); Mean Corpuscular Volume 87.4 fL (80.0-94.0); Mean Platelet Volume 10.5 fL (7.4-10.4); Platelet Count 130 10^3/uL (130-400); Red Blood Cell Count 3.42 10^6/uL (4.70-6.10); Red Cell Dist. Width 13.2 % (11.5-14.5); White Blood Cell Count 11.4 10^3/uL (4.8-10.8)
[2024-02-02 03:48] LABS: Blood Urea Nitrogen 25 mg/dl (9-20); Calcium 8.5 mg/dl (8.4-10.2); Carbon Dioxide 25 mmol/L (22-30); Chloride 106 mmol/L (98-107); Estimated Creatinine Clearance 118 ml/min; Glucose 112 mg/dl (70-99); Magnesium 2.3 mg/dl (1.6-2.3); Potassium 4.2 mmol/L (3.5-5.1); Sodium 140 mmol/L (135-145); eGFR > 60.00
--- NOTE | 2024-02-02 04:32 | W.PN.CT ---
Today's Communication / Plan
-
Plan:
-No major issues overnight. Hemodynamically and neurologically intact
-Successfully extubated yesterday 02/01/24 @ 1725
-Levophed gtt weaned off last night, dobutamine gtt weaned to 1 mcg/kg/min, and on insulin gtt per protocol
-Last CI 3.16, U/o since 1060 mL
-Monitor chest tube output: 2meds 170, R/L pls 75/100, may be able to d/c pleural CTs if no significant drainage when OOB
-D/C swan and a-line once off inotrope
-D/C Clinton later in the day, has BPH on Flomax @ home
-Transfer to [facility] phase later today once off insulin gtt
-Maintain cordis
-Monitor temporary pacer (will cut prior to d/c home)
-Cont. current meds (ASA, Amiodarone, Crestor, Flomax; Lopressor on hold while on dobutamine, will add Plavix)
-Encourage use of IS
-Wean off of O2 as tolerated
-OOB into chair/Ambulate
Assessment / Plan
-
Assessment:
-S/P AVR (25 mm bioprosthetic valve) /CABG x 2 (MCLEAN-LAD, SVG-RPDA)/R EVH, by Dr. Tapia, 02/01/24, pod#1
-Severe aortic valve insufficiency
-Multivessel coronary artery disease
-Mild mitral and tricuspid valve regurgitation
-LVEF 60-65%, per intraop ADALGISA
-Hypertension
-Hyperlipidemia
-Class 1 obesity (BMI 32)
-Prediabetes (A1C 5.8)
-BPH (on Flomax @ home)
-S/P LHC (10/28/23)
-S/P Hip surgery x 2 (2007, 2016)
-S/P B/L knee surgeries (2000, 2003)
-S/P Colostomy with reversal (1994, 1995)
-Acute postop blood loss/Anemia (stable without transfusion)
-Acute postop atelectasis/pleural effusion
-Acute postop hypovolemia with subsequent hypervolemia
Discussed patient care with: Cardiology, Nursing, Respiratory Therapy, Pharmacy and Care Team
Subjective
Procedure
-S/P AVR (25 mm bioprosthetic valve) /CABG x 2 (MCLEAN-LAD, SVG-RPDA)/R EVH, by Dr. Tapia, 02/01/24
-
Date of Service: February 02, 2024
Pt c/o incisional pain, otherwise feels well
Objective Data
-
Lab Results
02/02/24 03:07
02/02/24 03:07
PT 17.0 Sec (11.4-14.6) H 02/02/24 03:07
INR 1.40 02/02/24 03:07
APTT 35.8 Sec (23.4-35.0) H 02/01/24 12:45
Vital Signs
Vital Signs
Temp Pulse Resp BP Pulse Ox
98.8 F 86 16 117/65 96
02/02/24 04:00 02/02/24 04:00 02/02/24 04:00 02/02/24 04:00 02/02/24 04:00
CT Intake/Output/Weight
02/01/24 02/01/24 02/02/24
06:59 18:59 06:59
Intake Total 1367.2 / 1941.6 574.4 / 1941.6
Output Total 635 / 1345 710 / 1345
Balance 732.2 / 596.6 -135.6 / 596.6
SaO2: 96 (3L)
Physical Exam
-
General: Awake, Oriented and AOx3
Cardiovascular: Regular rate & rhythm, Rub and No Gallop
Respiratory: Decreased Breath Sounds
Sternum: Stable
Incision: Clean, Dry, Intact and Dressing Intact
Extremities: Other (+trace edema)
Data Reviewed
-
Lab Results: Results Reviewed
Medications: Active Meds Reviewed
Chest X-Ray: Report Reviewed and Image Reviewed
ECG: Report Reviewed and Image Reviewed
[2024-02-02] MEDS: TYLENOL 1000 MG PO ×3 (06:06→22:03)
[2024-02-02 06:10] LABS: Glucose - Point of Care 108 mg/dl (70-99)
--- NOTE | 2024-02-02 07:12 | W.PN.INTV ---
Today's Communication / Plan
Recommendations
Tolerated extubation
Norepinephrine weaned, dobutamine currently being weaned
Likely discontinue pulmonary artery line and arterial line today
Wean oxygen
Insulin drip will be discontinued later today-printed circuit board assembly repairer will sign off
Assessment
-
73-year-old male with a history of hypertension, hyperlipidemia and aortic valve insufficiency underwent CABG/AVR and printed circuit board assembly repairer consulted for postoperative ventilator/critical care management 02/01/2024.
Assessment
CAD and aortic insufficiency
Status post CABG and AVR-Dr. Tapia-02/01/2024
Mild anemia-hemoglobin 12.5
Mild hyperglycemia-blood sugar 107, A1c 5.8
Conditions present prior to admission:
Hypertension.
Hyperlipidemia.
Obesity-BMI 32
Torn rotator cuff. Hip surgery 2007, 2016. Knee surgeries 2000, 2003. Bowel surgery colostomy 1994, reversed 1995. Back surgery.
Plan
Tolerated extubation
Wean FiO2
Encourage incentive spirometry
Increase activity
Aspiration precautions
Pulmonary artery catheter and arterial line will be removed later today
Pressors have been weaned-dobutamine drip weaned to 1 mcg/kg/min
Continue to monitor chest tube output
Follow hemoglobin
Continue to follow platelet count and coags
Transfuse blood product as needed
CT surgery following chest tubes as well
Follow blood sugar
Insulin supplementation continues as needed
Early nutrition
Early mobilization
DVT prophylaxis
Patient will be transferred to telemetry phase-call pulmonary if respiratory issues arise
Reviewed the patient's pertinent medical records including radiographs, microbiology, laboratory evaluations, and discussion with primary team, and critical care nursing.
Diagnostic data:
Chest x-ray 02/01/2024-pending
CT chest coronary angiogram 10/19/2023-multivessel calcified plaque including moderate diffuse calcified plaque left main, calcium score 1897 consistent with significant plaque burden
Echocardiogram 10/29/2023-EF 60%, mild mitral regurgitation, moderate aortic stenosis
Cardiac catheterization 10/28/2023-no significant left main stenosis, moderate calcified plaque mid LAD
Subjective Dataa
Subjective Data
Date of Service:
Date of Service: February 02, 2024
Chief Complaint: [employer] H[employer] Developer Follow Up, Pulmonary Follow Up and Vent Management Follow Up
Subjective:
Tolerated extubation, still has PA line and arterial line, did not sleep well, but, pain better controlled, out of bed, no shortness of breath at rest and no abdominal pain
Review of Systems
General: Other (Per HPI)
Objective Data
Data Reviewed
Vital Signs / I&O / Oxygen:
Vital Signs
Temp Pulse Resp BP Pulse Ox
98.8 F 88 29 133/63 96
02/02/24 04:00 02/02/24 06:45 02/02/24 06:45 02/02/24 06:05 02/02/24 06:50
Intake and Output
02/01/24 02/02/24 02/03/24
06:59 06:59 06:59
Intake Total 1994.0 / 1994.0
Output Total 1575 / 1575
Balance 419.0 / 419.0
SaO2 [SIMV] 97
SaO2 96
Nasal Cannula flow liters per 3
minute
Physical Exam
General: Respiratory Distress (n) and Comfortable
HEENT: Normocephalic, Anicteric and Moist Mucous Membranes
Cardiovascular: Regular Rhythm
Respiratory: Wheeze (n), Crackles (Basilar), Rhonchi (n), Non-Labored Respirations, Accessory Resp Muscle Use (n) and Stridor (n)
GI: Soft, Non Distended and Non Tender
Neurology: Awake, Alert and No Motor Deficits
Skin: Warm, Good Color, Cyanosis (n), Jaundice (n) and Rash (n)
Labs/Micro/Reports
Lab Data
02/02/24 03:07
02/02/24 03:07
Laboratory Results
02/01/24 02/01/24 02/01/24
12:45 15:28 17:06
PT 18.2 H
INR 1.53
APTT 35.8 H
pH 7.33 L 7.39 7.42
pCO2 43 41 38
pO2 220 H 131 H 135 H
HCO3 22.7 24.8 24.6
O2 Delivery Level Not Reportable
02/02/24
03:07
PT 17.0 H
INR 1.40
APTT
pH
pCO2
pO2
HCO3
O2 Delivery Level
--- NOTE | 2024-02-02 07:18 | W.PN.ANS.POP ---
Anesthesia Post Operative
- Anesthesia Post Op Note
Vital Signs Stable-See Nursing Note: Yes
Airway Patent: Yes
Adequate Pain Control: Yes
Change in Mental Status: No
Current Postoperative Nausea & Vomiting: No
Anesthesia Complications: No
General Anesthetic Recall: No
Unplanned Admission: No
Post Op Hydration Adequate: Yes
--- NOTE | 2024-02-02 08:00 | PTCARENOTE ---
pt received from previous RN, oriented, OOB in chair. SR on the monitor, HR 80-90s. A&V wires, AAI 50/8. SBP 120s-130s. PAP 20s/10s. CVP ~4-8, CI >2. Dobutamine gtt off per Dr. Tapia. palpable pulses, trace LE edema. pt on 3LNC, 97% POX. lungs
diminished in bases. IS encouraged. CTx4, no air leak or crepitus noted. pt abdomen s/n, denies n/v. hypoactive BS. clears tolerated well. DTV post Clinton removal. sternal incision approximated, surgical adhesive present, CRISTIN. chest tube dressing
c/d/i. RLE JANNET bandage in place. RIJ cordis/swan maintained. L radial Christa flushed, zeroed, and calibrated. PIV x2. insulin gtt running per protocol. see worklist for VS, I&O, and assessment.
[2024-02-02 08:02] LABS: Glucose - Point of Care 107 mg/dl (70-99)
[2024-02-02] MEDS: LOW STRENGTH ASPIRIN 81 MG PO (09:04)
[2024-02-02] MEDS: PROTONIX 40 MG PO (09:04)
[2024-02-02] MEDS: PLAVIX 75 MG PO (09:04)
[2024-02-02] MEDS: LOPRESSOR 12.5 MG PO ×2 (09:04→20:19)
[2024-02-02] MEDS: SENOKOT-S 1 TABLET PO ×2 (09:04→20:19)
[2024-02-02] MEDS: PACERONE 200 MG PO ×3 (09:05→22:04)
[2024-02-02] MEDS: BACTROBAN 2% OINTMENT 1 APPLIC NASAL ×2 (09:05→20:19)
[2024-02-02] MEDS: NEURONTIN 100 MG PO ×3 (09:05→22:03)
[2024-02-02] MEDS: NOVOLOG FLEXPEN SC (09:07)
[2024-02-02 10:18] LABS: Glucose - Point of Care 136 mg/dl (70-99)
--- NOTE | 2024-02-02 10:36 | PTCARENOTE ---
pt placed back to bed. L arnold Goodwin dc'd as ordered, dressing c/d/i. ANANT momin dc'd as ordered. pt OOB to chair w/ assist.
[2024-02-02 12:05] LABS: Glucose - Point of Care 133 mg/dl (70-99)
[2024-02-02] MEDS: NOVOLOG FLEXPEN 4 UNITS SC (12:12)
[2024-02-02] MEDS: NSS IV (12:13)
--- NOTE | 2024-02-02 12:15 | PTCARENOTE ---
pt VSS, 94% on RA. IS encouraged. oral hygiene performed. OOB in chair for lunch. voided in urinal.
[2024-02-02] MEDS: ULTRAM 50 MG PO ×3 (12:18→20:19)
[2024-02-02 13:03] LABS: Glucose - Point of Care 98 mg/dl (70-99)
--- NOTE | 2024-02-02 14:32 | W.PN.CARDCBS ---
Today's Communication / Plan
-
Plan:
-MVCAD with moderate to severe AI and moderate . S/p CABG x 2 (In situ MCLEAN to LAD, Ao to RSVG to RPDA) and s/p SAVR [25 mm bioprosthetic valve] 02/01/2024, POD #1
-Patient was extubated, off DBE and Levophed, only on insulin drip.
-Post op ECG sinus rhythm with icrbbb and non-specific ST abnormality; continue to monitor on tele
-Post OP CXR with very small left pleural effusion
-Monitor and trend post-op Hgb. Monitor renal function and replete lytes as needed.
-Cont supportive post-op care
Sarah Camarillo MD
Impression / Plan
-
PCP: Dr. Cristofer Quintero
Obstetrics Gynecology Md: Dr. Merced Melo
Impression:
Multivessel CAD
s/p CABG x 2 (In situ MCLEAN to LAD, Ao to RSVG to RPDA) 02/01/2024
Severe Aortic regurgitation with mild to moderate aortic stenosis
s/p SAVR [25 mm bioprosthetic valve] 02/01/2024
Hypertension
Hyperlipidemia
Mitral regurgitation
Hip surgeries
Knee surgeries
Bowel obstruction with colostomy bag, reversed
Back surgery
Cardiac cath 10/28/2023: LM: Cloacal with near separate origins of the LAD and circumflex: LAD:moderately calcified proximal and mid LAD with at least 60% stenosis of the mid lesion just before the origin of the first diagonal branch. LCX:LI,
noncritical CAD. RCA: proximal 30% stenosis and 60% mid RCA stenosis as well as 40% stenosis near the origin of the second right marginal branch. Both the posterolateral branch and the PDA have disease at their origin. iFR assessment of the LAD
lesion was positive although the RCA measurement was above ischemic threshold measuring 8.95.97.95.
Echocardiogram 10/29/2023: EF 60%, mild LVH, mildly dilated LA, mild MR/TR, mild to moderate aortic stenosis with peak/mean gradient 42/21 mmHg, NEOC 2.1 cm�, moderate to severe AI
Plan:
-MVCAD with moderate to severe AI and moderate . S/p CABG x 2 (In situ MCLEAN to LAD, Ao to RSVG to RPDA) and s/p SAVR [25 mm bioprosthetic valve] 02/01/2024, POD #1
-Patient was extubated, off DBE and Levophed, only on insulin drip.
-Post op ECG sinus rhythm with icrbbb and non-specific ST abnormality; continue to monitor on tele
-Post OP CXR with very small left pleural effusion
-Monitor and trend post-op Hgb. Monitor renal function and replete lytes as needed.
-Cont supportive post-op care
HPI:
This is a 72-year-old gentleman with a past medical history notable for moderate aortic insufficiency, mild aortic stenosis, hypertension, and hyperlipidemia.� He was evaluated by Dr. Jimenez earlier in the year and reported some exertional chest
tightness in September 2022 when he was out walking his dog in cold weather months.� The symptoms would occur with exertion and would resolve within 1 minute of rest.� As far as he can recall he has had no recurrence in his symptoms since September
2021.� He remains reasonably active and continues to walk his dog but is not sure that he experienced similar symptoms since then.� A Lexiscan Myoview study was notable for a small area of mildly decreased uptake at the apex that was largely fixed
consistent with infarction with residual ischemia versus soft tissue attenuation.� His LVEF was estimated at 58%.� He was seen back in our office and reportedly experienced some degree of recurring anginal symptoms for which a CT coronary
angiography was performed.� The coronary calcium score was 1897.� The left main was noted to have moderate calcific diffuse plaque, the LAD had severe proximal calcified plaque and diffuse moderate to severe mid calcified plaque.� The circumflex had
severe proximal calcific plaque in the right coronary artery had moderate to severe proximal calcific plaque.� Dr. Melo discussed the findings and recommended proceeding with coronary angiography.� The patient continued to deny any symptoms
which was confirmed post procedure by his spouse.� Both the patient and his state that he has a tendency to 'downplay any symptoms.' He had chest pain 12/28/2023 while walking his dog in [place] and was evaluated in the emergency
department. Given progression of symptoms patient met with CT surgery and was agreeable to proceed with CABG and AVR.
Progress Note - Obstetrics Gynecology Md
Subjective
Date of Service: February 02, 2024
Extubated. No major complaints
Objective
Labs:
02/02/24 03:07
02/02/24 03:07
Labs
Hgb 10.4 g/dL (13.0-18.0) L 02/02/24 03:07
Hct 29.9 % (39.0-52.0) L 02/02/24 03:07
Plt Count 130 10^3/uL (130-400) D 02/02/24 03:07
PT 17.0 Sec (11.4-14.6) H 02/02/24 03:07
INR 1.40 02/02/24 03:07
APTT 35.8 Sec (23.4-35.0) H 02/01/24 12:45
Sodium 140 mmol/L (135-145) 02/02/24 03:07
Potassium 4.2 mmol/L (3.5-5.1) 02/02/24 03:07
BUN 25 mg/dl (9-20) H 02/02/24 03:07
Creatinine 0.6 mg/dL (0.7-1.3) L 02/02/24 03:07
Glucose 112 mg/dl (70-99) H 02/02/24 03:07
Vital Signs and I&O:
Vital Signs
Temp Pulse Resp BP Pulse Ox
99.1 F 82 21 94/69 93
02/02/24 08:00 02/02/24 13:00 02/02/24 13:00 02/02/24 13:00 02/02/24 13:00
Vital Signs
Temp Pulse Resp BP Pulse Ox
99.1 F 82 21 94/69 93
02/02/24 08:00 02/02/24 13:00 02/02/24 13:00 02/02/24 13:00 02/02/24 13:00
Intake & Output
01/31/24 02/01/24 02/02/24 02/03/24
06:59 06:59 06:59 06:59
Intake Total 1994.0 / 1994.0 94.7 / 94.7
Output Total 1575 / 1575 210 / 210
Balance 419.0 / 419.0 -115.3 / -115.3
Physical Exam
Physical Exam
GEN: Awake, alert
HEENT: supple, anicteric, mmm
LUNGS: Mildly decreased at left base CTA, no wheezes/rales
CV: Reg, S1/S2, 1/6 syst murmur, no rub or gallops
Chest: Sternotomy incision well-approximated
ABD: soft, BS+, NT/ND
EXT: No edema,clubbing or cyanosis
NEURO: awake, alert, answering questions.
SKIN: No rash, warm, dry, pink
--- NOTE | 2024-02-02 16:30 | PTCARENOTE ---
pt VSS, no changes in assessment. A&V wire insulated as ordered, chest tube dressing changed. pt washed w/ CHG wipes. ambulated to hallway and sitting OOB in chair for dinner.
[2024-02-02] MEDS: CRESTOR 20 MG PO (18:07)
[2024-02-02] MEDS: COSOPT EYE DROPS 1 DROP OPHTH (20:20)
--- NOTE | 2024-02-02 21:39 | PTCARENOTE ---
Assumed care of patient at 1900. Patient found OOB in chair at time of assessment. Patient is [place] wears hearing aids. Lung sounds are diminished bilaterally, patient in on 1L via NC with sa2 at 96%. There are CTx4: 2xmeds to one atrium and R/L
pleural to one atrium draining red sanguineous. Patient's heart sounds have a regular rate and rhythm, patient is NSR on the monitor, normal palpable pulses, and trace BLE edema. Soft nontender obese abdomen with active BS no post op BM reported.
Patient is voiding using urinal. Patient has R IJ corids, R FA PIV, and L FA PIV. Patient has sternal incision that is approx with surg adhesive ENROLLED AGENT, an ABD dressing over CT wounds that is CDD, R groin puncture that is approx with surg adhesive
ecchymotic and CRISTIN, and RLE incision approx with surg adhesive CRISTIN. VSS. Assisted patient with ambulation within room. Patient is stable.
--- NOTE | 2024-02-02 23:00 | PTCARENOTE ---
report received from previous RN, walking rounds done. pt asleep. VSS. NSR, HR 80's. 2LNC. CT x4 intact to -20cm wall suction, drainage WNL, no air leak present. RIJ cordis intact w KVO infusing. all surgical sites stable. see worklist for full
assessment, VS, and interventions.
[2024-02-03] VITALS (12 sets, daily range): BP systolic 99–133; BP diastolic 61–85; PULSE 85; O2SAT 98–99; BMI 32.0
[2024-02-03] MEDS: ULTRAM 50 MG PO ×6 (00:01→23:34)
--- NOTE | 2024-02-03 05:13 | W.PN.CT ---
Today's Communication / Plan
-
-pod #2
-no issues overnight
-CT output: 2 meds 55/125, 2 pleur 30/70 in 12/24 hrs
-wean off O2 as tolerated - pOx 94% on 2L
-current meds (ASA, Plavix, Crestor, Lopressor, Amio, Flomax, Protonix)
-maintain pw (will cut prior to d/c home)
-encourage IS, OOB
Assessment / Plan
-
Assessment:
-S/P AVR (25 mm bioprosthetic valve) /CABG x 2 (MCLEAN-LAD, SVG-RPDA)/R EVH, by Dr. Tapia, 02/01/24, pod#2
-Severe aortic valve insufficiency
-Multivessel coronary artery disease
-Mild mitral and tricuspid valve regurgitation
-LVEF 60-65%, per intraop ADALGISA
-Hypertension
-Hyperlipidemia
-Class 1 obesity (BMI 32)
-Prediabetes (A1C 5.8)
-BPH (on Flomax @ home)
-S/P LHC (10/28/23)
-S/P Hip surgery x 2 (2007, 2017)
-S/P B/L knee surgeries (2000, 2003)
-S/P Colostomy with reversal (1994, 1995)
-Acute postop blood loss/Anemia (stable without transfusion)
-Acute postop atelectasis/pleural effusion
-Acute postop hypovolemia with subsequent hypervolemia
Discussed patient care with: Nursing and Care Team
Subjective
Procedure
-S/P AVR (25 mm bioprosthetic valve) /CABG x 2 (MCLEAN-LAD, SVG-RPDA)/R EVH, by Dr. Tapia, 02/01/24
-
Date of Service: February 03, 2024
Objective Data
-
PT 17.0 Sec (11.4-14.6) H 02/02/24 03:07
INR 1.40 02/02/24 03:07
APTT 35.8 Sec (23.4-35.0) H 02/01/24 12:45
Vital Signs
Vital Signs
Temp Pulse Resp BP Pulse Ox
98.8 F 81 20 129/70 94
02/02/24 22:57 02/02/24 22:57 02/02/24 22:57 02/02/24 22:57 02/02/24 23:00
CT Intake/Output/Weight
02/02/24 02/02/24 02/03/24
06:59 18:59 06:59
Intake Total 626.8 / 1994.0 124.7 / 124.7
Output Total 940 / 1575 460 / 570 110 / 570
Balance -313.2 / 419.0 -335.3 / -445.3 -110 / -445.3
SaO2: 94
Physical Exam
-
General: Awake and AOx3
Cardiovascular: Regular rate & rhythm and Murmur (2/6 systolic at L midclav)
Respiratory: Decreased Breath Sounds
Sternum: Stable
Incision: Clean, Dry and Dressing Intact
Extremities: Other (trace edema b/l, 2+ DP b/l)
Abdomen: soft, nontender, nondistended, +decreased bowel sounds
Data Reviewed
-
Lab Results: Results Reviewed
Medications: Active Meds Reviewed
Chest X-Ray: Report Reviewed and Image Reviewed
ECG: Report Reviewed and Image Reviewed
[2024-02-03] MEDS: TYLENOL 1000 MG PO ×3 (05:51→23:34)
[2024-02-03 06:22] LABS: Hematocrit 27.8 % (39.0-52.0); Hemoglobin 9.5 g/dL (13.0-18.0); Mean Corp Hgb Conc. 34.2 g/dL (33.0-37.0); Mean Corpuscular Hgb 30.6 pg (27.0-31.0); Mean Corpuscular Volume 89.7 fL (80.0-94.0); Mean Platelet Volume 10.7 fL (7.4-10.4); Platelet Count 100 10^3/uL (130-400); Red Cell Dist. Width 13.3 % (11.5-14.5)
[2024-02-03 06:34] LABS: Blood Urea Nitrogen 35 mg/dl (9-20); Calcium 8.4 mg/dl (8.4-10.2); Carbon Dioxide 29 mmol/L (22-30); Chloride 102 mmol/L (98-107); Estimated Creatinine Clearance 102 ml/min; Glucose 122 mg/dl (70-99); Sodium 136 mmol/L (135-145); eGFR > 60.00
[2024-02-03 06:47] LABS: Potassium 4.5 mmol/L (3.5-5.1)
--- NOTE | 2024-02-03 08:02 | PTCARENOTE ---
Patient received from nightshift nurse. Patient is alert and oriented x4, pleasant. Patient c/o 5/10 sternal incision pain, administered scheduled and PRN pain medications as ordered. NSR. HR 90s-100s. Audible heart tones. Epicardial A&V wires are
insulated. Pacer box located in the room. BP 114/61. RIJ cordis maintained to KVO. PIV x2 maintained. Palpable pulses. Trace bilateral ankle edema. 2L NC maintained. Oxygen saturation 96%. Upon auscultation, lung sounds diminished at the bases. CTx4
maintained to -20cm wall suction. MS CTx2 has small red drainage. Bilateral pleural CTs have small red drainage. Abdomen round. +BS. Per patient, passing gas but no BM yet. Assist x1 OOB into chair. Sternal incision is approximated with surgical
adhesive and open to air. R leg incision is approximated with surgical adhesive and open to air. R groin puncture site is approximated with surgical adhesive and open to air. Plan to discontinue CTs, awaiting Dr. Tapia's approval.
[2024-02-03 08:30] LABS: ACT+ - POC > 1003 Seconds (82-134)
[2024-02-03] MEDS: NEURONTIN 100 MG PO ×3 (08:34→23:34)
[2024-02-03] MEDS: LOPRESSOR 12.5 MG PO (08:34)
[2024-02-03] MEDS: SENOKOT-S 1 TABLET PO ×2 (08:35→20:16)
[2024-02-03] MEDS: LOW STRENGTH ASPIRIN 81 MG PO (08:35)
[2024-02-03] MEDS: BACTROBAN 2% OINTMENT 1 APPLIC NASAL ×2 (08:35→20:17)
[2024-02-03] MEDS: PACERONE 200 MG PO ×3 (08:35→23:34)
[2024-02-03] MEDS: PLAVIX 75 MG PO (08:35)
[2024-02-03] MEDS: COSOPT EYE DROPS 1 DROP OPHTH ×2 (08:36→20:16)
--- NOTE | 2024-02-03 08:56 | W.PN.CARDCBS ---
Today's Communication / Plan
-
Supportive post op care
Impression / Plan
-
PCP: Dr. Cristofer Quintero
Certified Credit Counselor: Dr. Merced Melo
Impression:
Multivessel CAD
s/p CABG x 2 (In situ MCLEAN to LAD, Ao to RSVG to RPDA) 02/01/2024
Severe Aortic regurgitation with mild to moderate aortic stenosis
s/p SAVR [25 mm bioprosthetic valve] 02/01/2024
Hypertension
Hyperlipidemia
Mitral regurgitation
Hip surgeries
Knee surgeries
Bowel obstruction with colostomy bag, reversed
Back surgery
Cardiac cath 10/28/2023: LM: Cloacal with near separate origins of the LAD and circumflex: LAD:moderately calcified proximal and mid LAD with at least 60% stenosis of the mid lesion just before the origin of the first diagonal branch. LCX:LI,
noncritical CAD. RCA: proximal 30% stenosis and 60% mid RCA stenosis as well as 40% stenosis near the origin of the second right marginal branch. Both the posterolateral branch and the PDA have disease at their origin. iFR assessment of the LAD
lesion was positive although the RCA measurement was above ischemic threshold measuring [id number].
Echocardiogram 10/29/2023: EF 60%, mild LVH, mildly dilated LA, mild MR/TR, mild to moderate aortic stenosis with peak/mean gradient 42/21 mmHg, ENOC 2.1 cm�, moderate to severe AI
Plan:
-MVCAD with moderate to severe AI and moderate . S/p CABG x 2 (In situ MCLEAN to LAD, Ao to RSVG to RPDA) and s/p SAVR [25 mm bioprosthetic valve] 02/01/2024, POD #2
-Doing well, hemodynamically stable and walking in halls with PT
-Maintaining SR- monitor on tele: continue post op prophylaxis amiodarone and low dose Lopressor
-wean off O2 as tolerated - pOx 96% on 2L. Encouraged use of IS
-CT management per CT surgery
-Plan for ASA/Plavix for 30day for graft patency than ASA alone.
-Temp PW per CT surgery
-post op anemia- monitor. Hb pre op 01/24/24 was 15---> today Hb 9.5
-Cr stable, 0.7
-encourage IS, OOB
-Cardiac rehab
-Will arrange OP follow up echo at office visit for new baseline
HPI:
This is a 72-year-old gentleman with a past medical history notable for moderate aortic insufficiency, mild aortic stenosis, hypertension, and hyperlipidemia.� He was evaluated by Dr. Jimenez earlier in the year and reported some exertional chest
tightness in September 2022 when he was out walking his dog in cold weather months.� The symptoms would occur with exertion and would resolve within 1 minute of rest.� As far as he can recall he has had no recurrence in his symptoms since September
2021.� He remains reasonably active and continues to walk his dog but is not sure that he experienced similar symptoms since then.� A [employer] Myoview study was notable for a small area of mildly decreased uptake at the apex that was largely fixed
consistent with infarction with residual ischemia versus soft tissue attenuation.� His LVEF was estimated at 58%.� He was seen back in our office and reportedly experienced some degree of recurring anginal symptoms for which a CT coronary
angiography was performed.� The coronary calcium score was 1897.� The left main was noted to have moderate calcific diffuse plaque, the LAD had severe proximal calcified plaque and diffuse moderate to severe mid calcified plaque.� The circumflex had
severe proximal calcific plaque in the right coronary artery had moderate to severe proximal calcific plaque.� Dr. Melo discussed the findings and recommended proceeding with coronary angiography.� The patient continued to deny any symptoms
which was confirmed post procedure by his spouse.� Both the patient and his state that he has a tendency to 'downplay any symptoms.' He had chest pain 12/28/2023 while walking his dog in [place] and was evaluated in the emergency
department. Given progression of symptoms patient met with CT surgery and was agreeable to proceed with CABG and AVR.
Progress Note - Certified Credit Counselor
Subjective
Date of Service: February 03, 2024
Seen and examined; OOB to chair. Patient known to me from office- doing well post op with incisional pain and slight pain with deep inspiration. No angina; denies dizziness. + flatus. Voiding well
Objective
Labs:
02/03/24 05:27
02/03/24 05:27
Labs
Hgb 9.5 g/dL (13.0-18.0) L 02/03/24 05:27
Hct 27.8 % (39.0-52.0) L 02/03/24 05:27
Plt Count 100 10^3/uL (130-400) L D 02/03/24 05:27
PT 17.0 Sec (11.4-14.6) H 02/02/24 03:07
INR 1.40 02/02/24 03:07
APTT 35.8 Sec (23.4-35.0) H 02/01/24 12:45
Sodium 136 mmol/L (135-145) 02/03/24 05:27
Potassium 4.5 mmol/L (3.5-5.1) 02/03/24 05:27
BUN 35 mg/dl (9-20) H 02/03/24 05:27
Creatinine 0.7 mg/dL (0.7-1.3) 02/03/24 05:27
Glucose 122 mg/dl (70-99) H 02/03/24 05:27
Vital Signs and I&O:
Vital Signs
Temp Pulse Resp BP Pulse Ox
97.9 F 103 18 114/61 96
02/03/24 07:50 02/03/24 08:35 02/03/24 07:50 02/03/24 08:35 02/03/24 08:00
Vital Signs
Temp Pulse Resp BP Pulse Ox
97.9 F 103 18 114/61 96
02/03/24 07:50 02/03/24 08:35 02/03/24 07:50 02/03/24 08:35 02/03/24 08:00
Intake & Output
02/01/24 02/02/24 02/03/24 02/04/24
06:59 06:59 06:59 06:59
Intake Total 1994.0 / 1994.0 244.7 / 244.7 500 / 500
Output Total 1575 / 1575 1095 / 1095 30
Balance 419.0 / 419.0 -850.3 / -850.3 470 / 470
Physical Exam
Physical Exam
GEN: AAOx3, NAD
HEENT: mmm
LUNGS: Mildly decreased at left base. +CT
CV: Reg, S1/S2, no murmur or rub. + PW
Chest: Sternotomy incision well-approximated
ABD: soft, BS+, NT/ND
EXT: No edema
[2024-02-03] MEDS: PROTONIX 40 MG PO (10:12)
[2024-02-03] MEDS: LASIX 20 MG PO (10:12)
--- NOTE | 2024-02-03 11:08 | PTCARENOTE ---
Vital signs stable. Denies pain/discomfort. NSR. HR 70s. BP 99/67. RIJ cordis maintained with KVO. PIV maintained. Weaned to RA. Oxygen saturation 94%. Patient ambulated in hallway with RN and CR. Afterwards, patient went back into bed. CTx4
discontinued per order and per protocol. Patient tolerated. New dressing applied. No CXR ordered. Will continue to monitor.
--- NOTE | 2024-02-03 12:05 | CM ---
Reviewed chart. Met with Mr. Brunson to review discharge plans. He states he is feeling well. He states prior to admission he resides with his spouse in a three story home with one step to enter. He states he has a full flight of steps to get to
bedroom. He states he has a full bathroom on each level. He states prior to admission he was independent with ambulation and adls. He ambulated 250 feet today. He states he does not have any DME in the home. He states he has a prescription plan and
uses [employer]. He states his spouse will be home to assist in his care if needed. We reviewed a home visit by the Cardiothoracic Transitional Care Nurse. He is agreeable to a home visit. Medical work-up in progress. The discharge plan is to return
home with his spouse and a home visit by the Cardiothoracic Transitional Care Nurse when medically stable.
[2024-02-03] MEDS: NSS IV (12:12)
[2024-02-03] MEDS: ULTRAM PO (12:12)
--- NOTE | 2024-02-03 15:54 | PTCARENOTE ---
Vital signs stable. NSR. HR 80s. BP 109/71. RIJ cordis maintained with KVO. PIV maintained. RA. Oxygen saturation 94%. Patient ambulated in hallway with RN. Then he went to take a nap. Will continue to monitor.
[2024-02-03] MEDS: CRESTOR 20 MG PO (17:28)
[2024-02-03] MEDS: LOPRESSOR 25 MG PO (20:16)
--- NOTE | 2024-02-03 21:19 | PTCARENOTE ---
Assumed care of patient at 1900. Patient found OOB in chair at time of assessment. Patient is AOx4, follows commands appropriately, moves all extremities. Lung sounds are diminished in bases, patient is on RA saO2 at 94%. Heart sounds have a regular
rate and rhythm, patient is NSR on the monitor, with normal palpable pulses, and trace ankle edema. Patient is voiding clear yellow in urinal. Active BS throughout all four quadrant with soft nontender obese abdomen. Patient has sternal incision
approx with surg adhesive CRISTIN, R groin puncture approx with surg adhesive TRAINING DEVELOPMENT SPECIALIST, ABD dressing over CT wounds that is CDI, and RLE incision approx with surg adhesive CRISTIN. Patient has a R IJ cordis receiving KVO, R AC PIV, and L FA PIV. VSS. Patient has
no complaints at this time.
[2024-02-03] MEDS: FLOMAX 0.400000000000000022 MG PO (23:34)
--- NOTE | 2024-02-04 00:30 | PTCARENOTE ---
Patient reassessed. VSS. Patient remains in SR on the monitor. Patient is stable.
[2024-02-04 03:20] VITALS: BP 120/64
[2024-02-04 03:41] LABS: Hematocrit 28.7 % (39.0-52.0); Hemoglobin 9.5 g/dL (13.0-18.0); Mean Corp Hgb Conc. 33.1 g/dL (33.0-37.0); Mean Corpuscular Hgb 30.2 pg (27.0-31.0); Mean Corpuscular Volume 91.1 fL (80.0-94.0); Mean Platelet Volume 10.3 fL (7.4-10.4); Platelet Count 114 10^3/uL (130-400); Red Blood Cell Count 3.15 10^6/uL (4.70-6.10); Red Cell Dist. Width 13.3 % (11.5-14.5); White Blood Cell Count 7.3 10^3/uL (4.8-10.8)
[2024-02-04 03:42] VITALS: BP 120/64
--- NOTE | 2024-02-04 03:55 | W.PN.CT ---
Today's Communication / Plan
-
-pod #3
-no issues overnight, no complaints
-diuresed well with Lasix 02/02 (UO 900+). O2 was weaned off - pOx94% on RA
-current meds (ASA, Plavix, Crestor, Lopressor increased 25 bid, Amio, Flomax, Protonix)
-maintain pw (will cut prior to d/c home)
-labs/CXR pending
-encourage IS, OOB
Assessment / Plan
-
Assessment:
-S/P AVR (25 mm bioprosthetic valve) /CABG x 2 (MCLEAN-LAD, SVG-RPDA)/R EVH, by Dr. Tapia, 02/01/24, pod#3
-Severe aortic valve insufficiency
-Multivessel coronary artery disease
-Mild mitral and tricuspid valve regurgitation
-LVEF 60-65%, per intraop ADALGISA
-Hypertension
-Hyperlipidemia
-Class 1 obesity (BMI 32)
-Prediabetes (A1C 5.8)
-BPH (on Flomax @ home)
-S/P LHC (10/28/23)
-S/P Hip surgery x 2 (2007, 2017)
-S/P B/L knee surgeries (2000, 2003)
-S/P Colostomy with reversal (1994, 1995)
-Acute postop blood loss/Anemia (stable without transfusion)
-Acute postop atelectasis/pleural effusion
-Acute postop hypovolemia with subsequent hypervolemia
Discussed patient care with: Nursing and Care Team
Subjective
Procedure
-S/P AVR (25 mm bioprosthetic valve) /CABG x 2 (MCLEAN-LAD, SVG-RPDA)/R EVH, by Dr. Tapia, 02/01/24
-
Date of Service: February 04, 2024
Objective Data
-
PT 17.0 Sec (11.4-14.6) H 02/02/24 03:07
INR 1.40 02/02/24 03:07
APTT 35.8 Sec (23.4-35.0) H 02/01/24 12:45
Vital Signs
Vital Signs
Temp Pulse Resp BP Pulse Ox
97.8 F 82 20 120/64 94
02/04/24 03:42 02/04/24 03:42 02/04/24 03:42 02/04/24 03:42 02/04/24 03:42
CT Intake/Output/Weight
02/03/24 02/03/24 02/04/24
06:59 18:59 06:59
Intake Total 120 / 244.7 1060 / 1150 90 / 1150
Output Total 635 / 1095 980 / 1530 550 / 1530
Balance -515 / -850.3 80 / -380 -460 / -380
SaO2: 94
Physical Exam
-
General: Awake and AOx3
Cardiovascular: Regular rate & rhythm and Murmur (2/6 systolic at L midclav)
Respiratory: Decreased Breath Sounds
Sternum: Stable
Incision: Clean, Dry and Dressing Intact
Abdomen: soft, nontender, nondistended, +decreased bowel sounds
Extremities: Other (trace edema b/l, 2+ DP b/l)
Data Reviewed
-
Lab Results: Results Reviewed
Medications: Active Meds Reviewed
Chest X-Ray: Report Reviewed and Image Reviewed
ECG: Report Reviewed and Image Reviewed
[2024-02-04 04:00] LABS: Blood Urea Nitrogen 22 mg/dl (9-20); Calcium 8.1 mg/dl (8.4-10.2); Carbon Dioxide 29 mmol/L (22-30); Estimated Creatinine Clearance 102 ml/min; Glucose 106 mg/dl (70-99); Magnesium 1.8 mg/dl (1.6-2.3); Potassium 4.2 mmol/L (3.5-5.1); Sodium 134 mmol/L (135-145); eGFR > 60.00
[2024-02-04 04:06] LABS: Chloride 101 mmol/L (98-107)
--- NOTE | 2024-02-04 04:30 | PTCARENOTE ---
Patient reassessed. VSS. AM labs obtained. AM hygiene care provided. Patient remains in NSR on this monitor. Patient is stable.
[2024-02-04] MEDS: TYLENOL 1000 MG PO (05:38)
[2024-02-04] MEDS: ULTRAM 50 MG PO ×2 (05:39→08:59)
[2024-02-04 06:00] VITALS: BMI 32.0
[2024-02-04] MEDS: PROTONIX 40 MG PO (08:58)
[2024-02-04] MEDS: SENOKOT-S 1 TABLET PO (08:58)
[2024-02-04] MEDS: LASIX 40 MG IV (08:58)
[2024-02-04] MEDS: PACERONE 200 MG PO (08:59)
[2024-02-04] MEDS: PLAVIX 75 MG PO (08:59)
[2024-02-04] MEDS: TOPROL XL 50 MG PO (08:59)
[2024-02-04] MEDS: NEURONTIN 100 MG PO (08:59)
[2024-02-04] MEDS: LOW STRENGTH ASPIRIN 81 MG PO (08:59)
[2024-02-04] MEDS: COSOPT EYE DROPS 1 DROP OPHTH (09:00)
[2024-02-04] MEDS: BACTROBAN 2% OINTMENT 1 APPLIC NASAL (09:01)
[2024-02-04] MEDS: NSS IV (09:01)
--- NOTE | 2024-02-04 09:13 | W.PN.CARDCBS ---
Today's Communication / Plan
-
Post-op care per CTS
GDMT as tolerated
Stable for DC from cardiology standpoint; follow-up as scheduled with Dr. Melo in office
Impression / Plan
-
PCP: Dr. Cristofer Quintero
[facility]: Dr. Merced Melo
Impression:
Multivessel CAD
s/p CABG x 2 (In situ MCLEAN to LAD, Ao to RSVG to RPDA) 02/01/2024
Severe Aortic regurgitation with mild to moderate aortic stenosis
s/p SAVR [25 mm bioprosthetic valve] 02/01/2024
Hypertension
Hyperlipidemia
Mitral regurgitation
Hip surgeries
Knee surgeries
Bowel obstruction with colostomy bag, reversed
Back surgery
Cardiac cath 10/28/2023: LM: Cloacal with near separate origins of the LAD and circumflex: LAD:moderately calcified proximal and mid LAD with at least 60% stenosis of the mid lesion just before the origin of the first diagonal branch. LCX:LI,
noncritical CAD. RCA: proximal 30% stenosis and 60% mid RCA stenosis as well as 40% stenosis near the origin of the second right marginal branch. Both the posterolateral branch and the PDA have disease at their origin. iFR assessment of the LAD
lesion was positive although the RCA measurement was above ischemic threshold measuring [id number].
Echocardiogram 10/29/2023: EF 60%, mild LVH, mildly dilated LA, mild MR/TR, mild to moderate aortic stenosis with peak/mean gradient 42/21 mmHg, ENOC 2.1 cm�, moderate to severe AI
Plan:
-MVCAD with moderate to severe AI and moderate . S/p CABG x 2 (In situ MCLEAN to LAD, Ao to RSVG to RPDA) and s/p SAVR [25 mm bioprosthetic valve] 02/01/2024, POD #2
-Doing well, hemodynamically stable and walking in halls with PT
-Maintaining SR- monitor on tele: continue post op prophylaxis amiodarone and low dose Lopressor
-wean off O2 as tolerated - pOx 96% on 2L. Encouraged use of IS
-CT management per CT surgery
-Plan for ASA/Plavix for 30day for graft patency than ASA alone.
-Temp PW per CT surgery
-post op anemia- monitor. Hb pre op 01/24/24 was 15---> today Hb 9.5
-Cr stable, 0.7
-encourage IS, OOB
-Cardiac rehab
-Will arrange OP follow up echo at office visit for new baseline
-Stable for DC from cardiology standpoint
HPI:
This is a 72-year-old gentleman with a past medical history notable for moderate aortic insufficiency, mild aortic stenosis, hypertension, and hyperlipidemia.� He was evaluated by Dr. Jimenez earlier in the year and reported some exertional chest
tightness in September 2022 when he was out walking his dog in cold weather months.� The symptoms would occur with exertion and would resolve within 1 minute of rest.� As far as he can recall he has had no recurrence in his symptoms since September
2021.� He remains reasonably active and continues to walk his dog but is not sure that he experienced similar symptoms since then.� A [employer] Myoview study was notable for a small area of mildly decreased uptake at the apex that was largely fixed
consistent with infarction with residual ischemia versus soft tissue attenuation.� His LVEF was estimated at 58%.� He was seen back in our office and reportedly experienced some degree of recurring anginal symptoms for which a CT coronary
angiography was performed.� The coronary calcium score was 1897.� The left main was noted to have moderate calcific diffuse plaque, the LAD had severe proximal calcified plaque and diffuse moderate to severe mid calcified plaque.� The circumflex had
severe proximal calcific plaque in the right coronary artery had moderate to severe proximal calcific plaque.� Dr. Melo discussed the findings and recommended proceeding with coronary angiography.� The patient continued to deny any symptoms
which was confirmed post procedure by his spouse.� Both the patient and his state that he has a tendency to 'downplay any symptoms.' He had chest pain 12/28/2023 while walking his dog in [place] and was evaluated in the emergency
department. Given progression of symptoms patient met with CT surgery and was agreeable to proceed with CABG and AVR.
Progress Note - [facility]
Subjective
Date of Service: February 04, 2024
Patient seen and examined this morning. No acute events overnight. Tele SR no events. Resting comforably in chair. Notes mild discomfort with deep inspiration at sternotomy site. No other complaints. Denies cp, sob, palpitations, lh, dizziness,
syncope, or weakness.
Objective
Labs:
02/04/24 03:23
02/04/24 03:23
Labs
Hgb 9.5 g/dL (13.0-18.0) L 02/04/24 03:23
Hct 28.7 % (39.0-52.0) L 02/04/24 03:23
Plt Count 114 10^3/uL (130-400) L 02/04/24 03:23
PT 17.0 Sec (11.4-14.6) H 02/02/24 03:07
INR 1.40 02/02/24 03:07
APTT 35.8 Sec (23.4-35.0) H 02/01/24 12:45
Sodium 134 mmol/L (135-145) L 02/04/24 03:23
Potassium 4.2 mmol/L (3.5-5.1) 02/04/24 03:23
BUN 22 mg/dl (9-20) H 02/04/24 03:23
Creatinine 0.7 mg/dL (0.7-1.3) 02/04/24 03:23
Glucose 106 mg/dl (70-99) H 02/04/24 03:23
Vital Signs and I&O:
Vital Signs
Temp Pulse Resp BP Pulse Ox
97.8 F 86 20 136/81 94
02/04/24 03:42 02/04/24 08:58 02/04/24 03:42 02/04/24 08:59 02/04/24 03:52
Vital Signs
Temp Pulse Resp BP Pulse Ox
97.8 F 86 20 136/81 94
02/04/24 03:42 02/04/24 08:58 02/04/24 03:42 02/04/24 08:59 02/04/24 03:52
Intake & Output
02/02/24 02/03/24 02/04/24 02/05/24
06:59 06:59 06:59 06:59
Intake Total 1994.0 / 1994.0 244.7 / 244.7 1150 / 1150 130 / 130
Output Total 1575 / 1575 1095 / 1095 1530 / 1530 450 / 450
Balance 419.0 / 419.0 -850.3 / -850.3 -380 / -380 -320 / -320
Physical Exam
Physical Exam
GEN: AAOx3, NAD
HEENT: mmm
LUNGS: Mildly decreased at left base. +CT
CV: Reg, S1/S2, no murmur or rub. + PW
Chest: Sternotomy incision well-approximated
ABD: soft, BS+, NT/ND
EXT: No edema
--- NOTE | 2024-02-04 09:27 | CM ---
Reviewed chart. Met with Mr. Brunson to review discharge plans. He states he is feeling well and maybe able to go home soon. He states prior to admission he resdies withhis spouse in a three story home with one step to enter. He states he has to go
up a full flight of steps to get to bedroom. He states he has a full bathroom on each level. Prior to admission he was independent with ambulation and adls. He does not have any DME in the home. He states his spouse will be home to assist in his
care if needed. we reviewed a home visit by the Cardiothoracic Transitional Care Nurse. He is agreeable to a home visit. Medical work-up in progress. The discharge plan is to return home with his spouse and a home visit by the Cardiothoracic
Transitional Care Nurse when medically stable.
[2024-02-04 10:45] VITALS: BP 106/61; BP 138/91; PULSE 89; O2SAT 96
[2024-02-04] MEDS: TOPROL XL 25 MG PO (10:59)
--- NOTE | 2024-02-04 13:41 | PTCARENOTE ---
resumed care of patient from prev RN. [place] walking halls upon arrival. AAOx3. Independent in care. NSR on monitor. HR 80s. 96% RA. doing IS independently. normal palpable pulses, and trace ankle edema. + BS , BRP. clear yellow urine. to give IV lasix
dose this am. All surigcal sites CRISTIN and approximated. C/D/I. For hopeful d/c this afternoon. will continue to monitor.
== END 2024-02-04 13:00 | disposition home or self-care (01) | DRG 220 ==
LOC: CVICU 05:03
PROVIDERS: Nurse Practitioner; ADMITTING PHYSICIAN Thoracic Surgery (Cardiothoracic Vascular Surgery); CONSULT PHYSICIAN Internal Medicine Critical Care Medicine; FAMILY PHYSICIAN Family Medicine
PROC: B24BZZ4 Ultrasonography of Heart with Aorta, Transesophageal (ICD-10-PCS; 2024-02-01)
PROC: 5A1221Z Performance of Cardiac Output, Continuous (ICD-10-PCS; 2024-02-01)
PROC: 06BP4ZZ Excision of Right Saphenous Vein, Percutaneous Endoscopic Approach (ICD-10-PCS; 2024-02-01)
PROC: 02100Z9 Bypass Coronary Artery, One Artery from Left Internal Mammary, Open Approach (ICD-10-PCS; 2024-02-01)
PROC: 021009W Bypass Coronary Artery, One Artery from Aorta with Autologous Venous Tissue, Open Approach (ICD-10-PCS; 2024-02-01)
PROC: 02RF08Z Replacement of Aortic Valve with Zooplastic Tissue, Open Approach (ICD-10-PCS; 2024-02-01)
DX: I25.10 Atherosclerotic heart disease of native coronary artery without angina pectoris (principal); D62 Acute posthemorrhagic anemia; J98.11 Atelectasis; J90 Pleural effusion, not elsewhere classified; I35.1 Nonrheumatic aortic (valve) insufficiency; I10 Essential (primary) hypertension; E78.5 Hyperlipidemia, unspecified; E66.9 Obesity, unspecified; Z68.32 Body mass index [BMI] 32.0-32.9, adult
CPT/HCPCS: 88305; 88311; 36415; 71045; 80048; 80053; 81003; 82248; 82330; 82565; 82805; 82947; 82962; 83036; 83735; 84132; 84302; 84520; 85014; 85018; 85025; 85027; 85049; 85610; 85730; 86850; 86900; 86901; 86920; 87070; 93005; 93312; 93320; 93325; 94002; J2597; P9045

== ENCOUNTER → 2024-05-08 11:11 | Outpatient (REF) | payer MEDICARE, BC, SELFPAY | LOC: RCS 11:11 | PROVIDERS: ATTENDING PHYSICIAN Physician Assistant; FAMILY PHYSICIAN Family Medicine | DX: I25.10 Atherosclerotic heart disease of native coronary artery without angina pectoris (principal); Z95.1 Presence of aortocoronary bypass graft; I35.1 Nonrheumatic aortic (valve) insufficiency; Z95.2 Presence of prosthetic heart valve | CPT/HCPCS: 93306 ==

== ENCOUNTER → 2025-01-04 08:09 | Outpatient (REF) | payer MEDICARE, BC, SELFPAY | LOC: RCS 08:09 | PROVIDERS: ATTENDING PHYSICIAN Internal Medicine Cardiovascular Disease; FAMILY PHYSICIAN Family Medicine | DX: I48.91 Unspecified atrial fibrillation (principal) | CPT/HCPCS: 93306 ==